=== PATIENT | female | born 1980 | race African-American/Black ===

== ENCOUNTER 2023-12-12 11:24 | Emergency (ER) | payer MEDICAID ==
[~2023-12-12] VITALS: Ht 170.2 cm; Wt 95.0 kg
[~2023-12-12 11:24] MED LIST: QUET50TA MT; TOP100 MT
[2023-12-12 11:38] VITALS: O2SAT 100
[2023-12-12] MEDS ORDERED: ACETAMINOPHEN 325MG TABLET PO ONE (12:15)
[2023-12-12] MEDS: ACETAMINOPHEN 325MG TABLET PO NR (14:54)
[2023-12-12 16:08] VITALS: BP 108/70; PULSE 78; RESP 18; TEMP 36.66960; O2SAT 100
== END 2023-12-12 16:07 | disposition home or self-care (01) ==
LOC: ER 11:24
DX: S20.211A Contusion of right front wall of thorax, initial encounter (principal); J45.909 Unspecified asthma, uncomplicated; Z90.49 Acquired absence of other specified parts of digestive tract; Z90.710 Acquired absence of both cervix and uterus; W18.30XA Fall on same level, unspecified, initial encounter; Y93.89 Activity, other specified; Y92.89 Other specified places as the place of occurrence of the external cause; Y99.8 Other external cause status
CPT/HCPCS: 81025; 73502; 73552; 71101; 73560; 99284; Z7610; L1830

== ENCOUNTER 2024-03-12 17:26 | Emergency (ER) | payer MEDICAID ==
[~2024-03-12] VITALS: Ht 182.9 cm; Wt 100.0 kg
[2024-03-12 17:32] VITALS: BP 155/92; PULSE 108; RESP 18; TEMP 98.8; O2SAT 99
[2024-03-12] MEDS ORDERED: OFLO5DRO4 RIGHT EAR (20:34)
[2024-03-12] MEDS ORDERED: CLIN-194 MT (20:34)
[2024-03-12] MEDS ORDERED: NAPR-681 MT (20:34)
== END 2024-03-12 21:18 | disposition home or self-care (01) ==
LOC: ER 17:26
DX: H60.91 Unspecified otitis externa, right ear (principal); H66.91 Otitis media, unspecified, right ear; J45.909 Unspecified asthma, uncomplicated; Z79.1 Long term (current) use of non-steroidal anti-inflammatories (NSAID); Z79.899 Other long term (current) drug therapy; Z90.49 Acquired absence of other specified parts of digestive tract; Z90.710 Acquired absence of both cervix and uterus
CPT/HCPCS: 99283